=== PATIENT | female | born 1970 | race Caucasian/White ===

== ENCOUNTER 2020-08-28 19:20 | Emergency (ER) | payer OTHER ==
[~2020-08-28] VITALS: Ht 160 cm; Wt 69.1 kg
--- NOTE | 2020-08-28 19:23 | PHYS DOC ---
General Adult HPI: HPI: ".. I was making lasagna.. And just feel like I am druged... Could not seem to follow the directions everything seems cloudy... Just feel very drugged..." "It been ever since I started dinner..or before dinner.. did get dinner made..but ..I just seem off..." Patient is a 50 year old female who presents with above hx and complaints of altered mental status before cooking dinner. During dinner she stated that she felt confused and could not remember the menu for lasagna. Was able to complete dinner and service to family. Patient however during dinner and after seeing and more confused to her and family members. Patient currently denies any med use. Patient denies any fever or chills. Patient denies any trauma. Patient moves all extremities on request. Patient denies any travel or severe ill contacts. No one in the family home are ill. No one has traveled overseas recently in the family unit. Patient is able answer questions. Patient denies any visual changes. Patient states she does feels like she is walking around in a cloud. Pt. normally follows at [facility]. Review of Systems: Review of Systems: Constitutional: Denies fever or chills Eyes: Denies change in visual acuity HENT: Denies nasal congestion or sore throat Respiratory: Denies cough or shortness of breath Cardiovascular: Denies chest pain or edema GI: Denies abdominal pain, nausea, vomiting, bloody stools or diarrhea : Denies dysuria Musculoskeletal: Denies back pain or joint pain Integument: Denies rash Neurologic: Denies headache, focal weakness or sensory. The patient complained of altered mental status. Endocrine: Denies polyuria or polydipsia Lymphatic: Denies swollen glands Psychiatric: Denies depression or anxiety Family History: Family History: Noncontributory to presentation Current Medications: Current Meds: See nursing for home meds Allergies: Allergies: No known drug allergies Physical Exam: PE: Constitutional: Well developed, well nourished, no acute distress, non-toxic appearance. [] HENT: Normocephalic, atraumatic, bilateral external ears normal, oropharynx moist, no oral exudates, nose normal. [] Eyes: PERRLA, EOMI, conjunctiva normal, no discharge. [] No field defects detected. Neck: Normal range of motion, no tenderness, supple, no stridor. [] Cardiovascular: Bradycardia heart rate regular rhythm, no murmur [] Lungs & Thorax: Bilateral breath sounds clear to auscultation [] Abdomen: Bowel sounds normal, soft, no tenderness, no masses, no pulsatile masses. [] Skin: Warm, dry, no erythema, no rash. [] Back: No tenderness, no CVA tenderness. [] Extremities: No tenderness, no cyanosis, no clubbing, ROM intact, no edema. [] Neurologic: Alert and oriented X 3, normal motor function, normal sensory function, no focal deficits noted. [] DTRs +2 patella and brachial. [facility] equal. No drift. Ambulatory without problems. Psychologic: Affect normal, judgement normal, mood normal. [] EKG: EKG: My interpretation EKG shows sinus rhythm at 61 bpm. No findings acute STEMI or contralateral changes essentially normal EKG. [] Radiology/Procedures: Radiology/Procedures: [place] [address] IMAGING REPORT Signed PATIENT: AVIVA ALVAREZ ACCOUNT: [id number] : 1970 LOCATION: ER AGE: 50 SEX: F EXAM STATUS: PRE ER ORD. PHYSICIAN: HARRIETT BERGER MD REASON: dyspnea PROCEDURE: PORTABLE CHEST 1V Single view chest dated 08/28/2020 8:06 PM: COMPARISON: None Clinical Indication: Dyspnea. Findings: Single upright portable exam of the chest was performed. Heart size and mediastinal contours are within normal limits. Lungs are clear. No consolidation or pleural effusion. No pneumothorax. IMPRESSION: No acute radiographic abnormality. Electronically signed by: Jann Reece MD (08/28/2020 8:06 PM) [facility] DICTATED AND SIGNED BY: JANN REECE MD DATE: 08/28/202005 CC: HARRIETT BERGER MD; PCP,NO ~MTH0 0 [][place] [address] IMAGING REPORT Signed PATIENT: AVIVA ALVAREZ ACCOUNT: [id number] : 1970 LOCATION: ER AGE: 50 SEX: F EXAM STATUS: PRE ER ORD. PHYSICIAN: HARRIETT BERGER MD REASON: alter. ms, jerky movements, confusion, difficulty speaking PROCEDURE: CT HEAD WO CONTRAST CT HEAD/BRAIN WO Date: 08/28/2020 7:47 PM Clinical Indication: alter. ms, jerky movements, confusion, difficulty speaking Comparison: None. Technique: 5 mm axial tomographic images were obtained of the head without contrast. These were viewed on brain and bone windows. One or more of the following dose reduction techniques were utilized: Automated exposure control (AEC), Adjustment of mA and/or kV according to patient size, Use of iterative reconstruction technique such as ASiR, CT scan done according to ALARA and image gently/image wisely Findings: The brain parenchyma is normal in attenuation. No intra- or extra-axial mass or fluid collection. No acute hemorrhage. The ventricles are normal in size, shape, and morphology. The kelly-white matter junction is normal. The subarachnoid cisterns are patent. The visualized paranasal sinuses are normal. The visualized portions of the orbits and globes are normal. The mastoid air cells are clear. The telephone interceptor operator topogram shows no lytic lesion or fracture. Impression: No acute intracranial process. Electronically signed by: August Jimenez MD (08/28/2020 8:08 PM) [facility] DICTATED AND SIGNED BY: AUGUST JIMENEZ MD DATE: 08/28/202004 CC: HARRIETT BERGER MD; PCP,NO ~MTH0 0 Heart Score: C/O Chest Pain: N/A HEART Score for Chest Pain: HEART Score for Chest Pain Response (Comments) Value History Slighlty/Non-Suspicious 0 ECG Normal 0 Age < 45 0 Risk Factors No Risk Factors 0 Troponin < Normal Limit 0 Total 0 Risk Factors: Risk Factors: DM, Current or recent (<one month) smoker, HTN, HLP, family history of CAD, obesity. Risk Scores: Score 0 - 3: 2.5% MACE over next 6 weeks - Discharge Home Score 4 - 6: 20.3% MACE over next 6 weeks - Admit for Clinical Observation Score 7 - 10: 72.7% MACE over next 6 weeks - Early Invasive Strategies Course & Med Decision Making: Course & Med Decision Making Pertinent Labs and Imaging studies reviewed. (See chart for details) Patient remained asymptomatic in the emergency department. Offered patient admission to a telemetry unit for further observation. Patient declined admission. Patient requesting discharge home. Patient follow-up primary care. Consider carotid Dopplers and further neuro work-up. Push fluids. Return if any concerns. Take daily aspirin. Impression: 1. Altered mental status 2. Altered mental status was resolved. [] Dragon Disclaimer: Dragon Disclaimer: This electronic medical record was generated, in whole or in part, using a voice recognition dictation system. Departure Departure: Referrals: PCP,NO (PCP) Sergey Disclaimer This chart was dictated in whole or in part using Voice Recognition software in a busy, high-work load, and often noisy Emergency Department environment. It may contain unintended and wholly unrecognized errors or omissions. HARRIETT BERGER MD Aug 28, 2020 19:23
[2020-08-28 19:25] VITALS: BP 175/95
[2020-08-28 19:55] LABS: BASO % 0 % (0-3); EOS # 0.1 x10^3/uL (0.0-0.7); EOS % 1 % (0-3); HEMATOCRIT 41.7 % (36.0-47.0); HEMOGLOBIN 14.1 g/dL (12.0-15.5); LYMPH # 2.9 x10^3/uL (1.0-4.8); LYMPH % 37 % (24-48); MEAN CORPUSCULAR HEMOGLOBIN 30 pg (25-35); MEAN CORPUSCULAR HGB CONC 34 g/dL (31-37); MEAN CORPUSCULAR VOLUME 87 fL (79-100); MONO # 0.6 x10^3/uL (0.0-1.1); MONO % 7 % (0-9); NEUT # 4.4 x10^3uL (1.8-7.7); NEUT % 55 % (31-73); PLATELET COUNT 222 x10^3/uL (140-400); RED BLOOD COUNT 4.78 x10^6/uL (3.50-5.40); RED CELL DISTRIBUTION WIDTH 13.4 % (11.5-14.5)
[2020-08-28 20:08] LABS: CALCIUM 9.5 mg/dL (8.5-10.1); CREATININE 0.8 mg/dL (0.6-1.0); GFR 76.2; MAGNESIUM 2.4 mg/dL (1.8-2.4); POTASSIUM 3.7 mmol/L (3.5-5.1)
--- NOTE | 2020-08-28 20:09 | RAD ---
Single view chest dated 08/28/2020 8:06 PM: COMPARISON: None Clinical Indication: Dyspnea. Findings: Single upright portable exam of the chest was performed. Heart size and mediastinal contours are with in normal limits. Lungs are clear. No consolidation or pleural effusion. No pneumothorax. IMPRESSION: No acute radiographic abnormality. Electronically signed by: Jann Reece MD (08/28/2020 8:06 PM) [facility]
--- NOTE | 2020-08-28 20:11 | RAD ---
CT HEAD/BRAIN WO Date: 08/28/2020 7:47 PM Clinical Indication: alter. ms, jerky movements, confusion, difficulty speaking Comparison: None. Technique: 5 mm axial tomographic images were obtained of the head without contrast. These were view ed on brain and bone windows. One or more of the following dose reduction techniques were utilized: A utomated exposure control (AEC), Adjustment of mA and/or kV according to patient size, Use of iterati ve reconstruction technique such as ASiR, CT scan done according to ALARA and image gently/image jaime ly Findings: The brain parenchyma is normal in attenuation. No intra- or extra-axial mass or fluid collection. No acute hemorrhage. The ventricles are normal in size, shape, and morphology. The kelly-white matter zak ction is normal. The subarachnoid cisterns are patent. The visualized paranasal sinuses are normal. The visualized portions of the orbits and globes are no rmal. The mastoid air cells are clear. The manager underwriting topogram shows no lytic lesion or fracture. Impression: No acute intracranial process. Electronically signed by: German Jimenez MD (08/28/2020 8:08 PM) [facility]
[2020-08-28] MEDS ORDERED: IV RINGERS SOLUTION,LACTATED 1,000 ML IV ONE (20:30)
[2020-08-28 21:20] LABS: SEDIMENTATION RATE 15 (0-25)
[2020-08-28] MEDS ORDERED: ASPIRIN 325 MG TABLET PO ONE (21:30)
[2020-08-28 21:38] LABS: BARBITURATES NEG (NEG); BENZODIAZEPINES NEG (NEG); CANNABINOIDS NEG (NEG); COCAINE NEG (NEG); METHADONE NEG (NEG); OPIATES NEG (NEG); PHENCYCLIDINE NEG (NEG)
[2020-08-28 21:43] LABS: BILIRUBIN,URINE NEG (NEG); CLARITY,URINE CLEAR; COLOR,URINE YELLOW; GLUCOSE,URINE NEG (NEG); NITRITE,URINE NEG (NEG); UROBILINOGEN,URINE 0.2 mg/dL (0.2 mg/dL)
[2020-08-28 21:44] LABS: BACTERIA,URINE 0 /HPF (0-FEW); RBC,URINE 0 /HPF (0-2); SQUAMOUS EPITHELIAL CELL,UR OCC /LPF; WBC,URINE 0 /HPF (0-4)
[2020-08-28 21:52] LABS: AMPHETAMINE/METHAMPHETAMINE NEG (NEG)
--- NOTE | 2020-08-28 22:25 | EKG ---
[address] [address] Test Date: 2020-08-28 Test Time: 20:19:14 Pat Name: AVIVA ALVAREZ Department: Room: Gender: F Guest Services Associate: : 1970 Requested By: HARRIETT BERGER Order Number: [id number] Reading MD: Measurements Intervals Slater Rate: 61 P: 49 MT: 154 QRS: 51 QRSD: 98 T: 77 QT: 452 QTc: 457 Interpretive Statements SINUS RHYTHM NORMAL ECG RI6.02 No previous ECG available for comparison
== END 2020-08-28 22:55 | disposition home health service (06) ==
LOC: ER 19:20
DX: R41.82 Altered mental status, unspecified (principal)
CPT/HCPCS: 36415; 70450; 71045; 80048; 80307; 81001; 81025; 82140; 82550; 83735; 83880; 84484; 85025; 85610; 85651; 85730; 86140; 93005; 96360; 99285; G0480; J7120